=== PATIENT | female | born 1995 | race Caucasian/White ===

== ENCOUNTER 2018-07-23 15:44 | Outpatient (CLI) | payer OTHER ==
[~2018-07-23 15:44] MED LIST: FLONASE16 GM NS; GILTUSS TR TAB1 EACH PO; SINGULAIR10 MG PO; ZYRTEC10 MG PO
== END 2018-07-23 15:52 | disposition home or self-care (01) ==
LOC: LAB 15:44
DX: Z11.3 Encounter for screening for infections with a predominantly sexual mode of transmission (principal)

== ENCOUNTER 2019-09-22 15:07 | Outpatient (CLI) | payer OTHER | END 2019-09-22 15:08 | disposition home or self-care (01) | LOC: LAB 15:07 | DX: E03.8 Other specified hypothyroidism (principal); Z00.00 Encounter for general adult medical examination without abnormal findings; I10 Essential (primary) hypertension; E78.00 Pure hypercholesterolemia, unspecified; Z11.4 Encounter for screening for human immunodeficiency virus [HIV]; E55.9 Vitamin D deficiency, unspecified; Z21 Asymptomatic human immunodeficiency virus [HIV] infection status; R79.89 Other specified abnormal findings of blood chemistry; E79.8 Other disorders of purine and pyrimidine metabolism ==

== ENCOUNTER 2019-09-26 10:56 | Emergency (ER) | payer OTHER ==
[~2019-09-26] VITALS: Ht 154.9 cm; Wt 59.0 kg
== END 2019-09-26 11:39 | disposition home or self-care (01) ==
LOC: ER 10:56
DX: S61.240A Puncture wound with foreign body of right index finger without damage to nail, initial encounter (principal); W46.0XXA Contact with hypodermic needle, initial encounter; Y93.89 Activity, other specified; Y92.69 Other specified industrial and construction area as the place of occurrence of the external cause; Y99.8 Other external cause status

== ENCOUNTER → 2019-09-27 | Emergency (ER) | payer OTHER ==
[~2019-09-27] VITALS: Ht 157.5 cm; Wt 49.9 kg
== END | disposition left against medical advice (07) ==
LOC: ER 10:27
DX: Z53.20 Procedure and treatment not carried out because of patient's decision for unspecified reasons (principal)

== ENCOUNTER 2020-02-02 08:32 | Outpatient (CLI) | payer OTHER | END 2020-02-02 08:55 | disposition home or self-care (01) | LOC: LAB 08:32 | DX: J11.1 Influenza due to unidentified influenza virus with other respiratory manifestations (principal); R05 Cough ==

== ENCOUNTER 2020-06-24 11:06 | Outpatient (CLI) | payer OTHER | END 2020-06-24 11:10 | disposition home or self-care (01) | LOC: CERTIFICAD 11:06 | PROVIDERS: ATTEND Family Medicine | DX: Z11.1 Encounter for screening for respiratory tuberculosis (principal) ==

== ENCOUNTER 2020-07-21 19:26 | Emergency (ER) | payer OTHER ==
[~2020-07-21] VITALS: Ht 154.9 cm; Wt 59.0 kg
== END 2020-07-21 21:56 | disposition home or self-care (01) ==
LOC: ER 19:26
DX: B34.9 Viral infection, unspecified (principal); Z20.828 Contact with and (suspected) exposure to other viral communicable diseases

== ENCOUNTER 2020-08-24 14:30 | Outpatient (CLI) | payer OTHER | END 2020-08-24 15:00 | disposition home or self-care (01) | LOC: LAB 14:30 | PROVIDERS: ATTEND Anesthesiology | DX: R05 Cough (principal); Z11.3 Encounter for screening for infections with a predominantly sexual mode of transmission ==

== ENCOUNTER → 2020-08-24 | Outpatient (CLI) | payer OTHER | END | disposition home or self-care (01) | LOC: PPH VACUNA 16:08 | DX: Z23 Encounter for immunization (principal) ==

== ENCOUNTER → 2021-06-09 | Outpatient (CLI) | payer OTHER | END | disposition home or self-care (01) | LOC: LAB 11:44 | PROVIDERS: ATTEND Emergency Medicine Pediatric Emergency Medicine | DX: Z03.818 Encounter for observation for suspected exposure to other biological agents ruled out (principal) ==

== ENCOUNTER 2021-08-17 10:00 | Outpatient (CLI) | payer OTHER | END 2021-08-17 10:15 | disposition home or self-care (01) | LOC: PPH VACUNA 10:00 | PROVIDERS: ATTEND Emergency Medicine Pediatric Emergency Medicine | DX: Z23 Encounter for immunization (principal) ==

== ENCOUNTER 2021-09-12 08:00 | Outpatient (CLI) | payer OTHER | END 2021-09-12 08:30 | disposition home or self-care (01) | LOC: PPH VACUNA 08:00 | PROVIDERS: ATTEND Emergency Medicine Pediatric Emergency Medicine | DX: Z23 Encounter for immunization (principal) ==

== ENCOUNTER 2022-07-20 08:00 | Outpatient (CLI) | payer OTHER | END 2022-07-20 08:05 | disposition home or self-care (01) | LOC: PPH VACUNA 08:00 | PROVIDERS: ATTEND Emergency Medicine Pediatric Emergency Medicine | DX: Z23 Encounter for immunization (principal) ==

== ENCOUNTER 2024-05-24 10:00 | Outpatient (CLI) | payer OTHER ==
[2024-05-24 11:29] LABS: HEMATOCRIT 38.2 % (36.0-45.00); HEMOGLOBIN 13.1 g/dL (12.0-15.00); MEAN CELL VOLUME 85.7 fL (80.00-100.00); MEAN CORPUSCULAR HEMOGLOBIN 29.3 pg (27.00-32.0); MEAN CORPUSCULAR HGB CONC 34.2 g/dl (32.0-36.0); PLATELET COUNT 229 K/uL (150-450); RED BLOOD COUNT 4.46 M/uL (4.00-6.00); RED CELL DISTRIBUTION WIDTH 13.2 % (11.5-14.5)
[2024-05-24 12:49] LABS: ALBUMIN 4.4 gm/dL (3.4-5.0); BILIRUBIN TOTAL 0.28 mg/dL (0.3-1.2); CALCIUM 9.5 mg/dL (8.5-10.1); CREATININE SERUM 0.64 mg/dL (0.55-1.02); GFR 109.71; GLOBULINA 3.6 G/DL (2.4-3.5); POTASSIUM 3.99 mEq/L (3.5-5.1)
== END 2024-05-24 23:00 | disposition home or self-care (01) ==
LOC: LAB 10:00
DX: D64.9 Anemia, unspecified (principal); R10.9 Unspecified abdominal pain

== ENCOUNTER 2024-08-14 11:40 | Outpatient (CLI) | payer OTHER | END 2024-08-14 12:00 | disposition home or self-care (01) | LOC: PPH VACUNA 11:40 | PROVIDERS: ATTEND Emergency Medicine Pediatric Emergency Medicine | DX: Z23 Encounter for immunization (principal) ==

== ENCOUNTER 2024-10-28 15:45 | Outpatient (CLI) | payer OTHER | END 2024-10-28 15:50 | disposition home or self-care (01) | LOC: LAB 15:45 | DX: Z02.89 Encounter for other administrative examinations (principal) ==

== ENCOUNTER 2024-10-31 06:07 | Outpatient (CLI) | payer OTHER | END 2024-10-31 06:08 | disposition home or self-care (01) | LOC: LAB 06:07 | PROVIDERS: ATTEND Internal Medicine | DX: B18.2 Chronic viral hepatitis C (principal); Z11.59 Encounter for screening for other viral diseases ==

== ENCOUNTER 2025-08-27 13:00 | Outpatient (CLI) | payer OTHER | END 2025-08-27 13:10 | disposition home or self-care (01) | LOC: PPH VACUNA 13:00 | PROVIDERS: ATTEND Emergency Medicine Pediatric Emergency Medicine | DX: Z23 Encounter for immunization (principal) ==

== ENCOUNTER 2025-09-08 12:51 | Outpatient (CLI) | payer OTHER | END 2025-09-08 12:53 | disposition home or self-care (01) | LOC: MAMO-SONO 12:51 | PROVIDERS: ATTEND Surgery | DX: N60.11 Diffuse cystic mastopathy of right breast (principal); N60.12 Diffuse cystic mastopathy of left breast ==

== ENCOUNTER 2025-10-28 13:09 | Outpatient (CLI) | payer OTHER | END 2025-10-28 23:00 | disposition home or self-care (01) | LOC: LAB 13:09 | PROVIDERS: ATTEND Internal Medicine | DX: B18.2 Chronic viral hepatitis C (principal); Z02.79 Encounter for issue of other medical certificate ==